=== PATIENT | female | born 1965 | race Caucasian/White ===

== ENCOUNTER 2017-12-23 15:31 | Emergency (ER) | payer MEDICAID ==
[2017-12-23] MEDS ORDERED: NORMAL SALINE 1000 ML 1,000 ML IV ONE (16:51)
[2017-12-23] MEDS ORDERED: MORPHINE SULFATE 10 MG/ML INJ IV ONE (16:51)
[2017-12-23] MEDS ORDERED: ONDANSETRON HCL INJ/PF 4 MG/2 ML SDV IV ONE (16:51)
--- NOTE | 2017-12-23 16:52 | ER Document Report ---
ED Medical Screen (RME) - General Chief Complaint: Abdominal Pain Stated Complaint: ABDOMINAL PAIN Time Seen by Provider: 12/23/17 16:50 Mode of Arrival: Ambulatory Information source: Patient Notes: This is a 52-year-old female who presents to the emergency room with left flank pain, chills, sweats for the past day. Patient denies dysuria. She denies any chest pain or shortness of breath. TRAVEL OUTSIDE OF THE [place] IN LAST 30 DAYS: No - Related Data Allergies/Adverse Reactions: Penicillins Allergy (Verified 07/29/13 20:52) Sulfa (Sulfonamide Antibiotics) Allergy (Verified 07/29/13 16:17) rash and vomiting Past Medical History Renal/ Medical History: Denies: Hx Peritoneal Dialysis Psychiatric Medical History: Reports: Hx Attention Deficit Hyperactivity Disorder, Hx Bipolar Disorder Past Surgical History: Reports: Hx Section - x2 - Immunizations Hx Diphtheria, Pertussis, Tetanus Vaccination: Yes Physical Exam - Vital signs Vitals: Temp Pulse Resp BP Pulse Ox 99.3 F 105 H 24 H 140/114 H 98 12/23/17 15:39 12/23/17 15:39 12/23/17 15:39 12/23/17 15:39 12/23/17 15:39 Course - Vital Signs Vital signs: Temp Pulse Resp BP Pulse Ox 99.3 F 105 H 24 H 140/114 H 98 12/23/17 15:39 12/23/17 15:39 12/23/17 15:39 12/23/17 15:39 12/23/17 15:39 Doctor's Discharge - Discharge Referrals: RENETTA AGOSTO NP-C [Primary Care Provider] - Follow up as needed
[2017-12-23 17:33] LABS: ABSOLUTE EOSINOPHILS # (AUTO) 0.1 10^3/uL (0.0-0.6); ABSOLUTE LYMPHOCYTES (AUTO) 0.8 10^3/uL (0.5-4.7); ABSOLUTE MONOCYTES (AUTO) 0.5 10^3/uL (0.1-1.4); BASOPHILS % (AUTO) 0.8 % (0-2); EOSINOPHILS % (AUTO) 1.2 % (0-6); HEMATOCRIT 44.1 % (36.0-47.0); HEMOGLOBIN 15.1 g/dL (12.0-15.5); LYMPHOCYTES % (AUTO) 14.1 % (13-45); MEAN CORPUSCULAR HEMOGLOBIN 31.5 pg (27.0-33.4); MEAN CORPUSCULAR HGB CONC 34.3 g/dL (32.0-36.0); MEAN CORPUSCULAR VOLUME 92 fl (80-97); MONOCYTES % (AUTO) 9.7 % (3-13); PLATELET COUNT 219 10^3/uL (150-450); RED BLOOD COUNT 4.79 10^6/uL (3.72-5.28); RED CELL DISTRIBUTION WIDTH 14.1 % (11.5-14.0); SEGMENTED NEUTROPHILS % (AUTO) 74.2 % (42-78); TOTAL CELLS COUNTED % (AUTO) 100 %; WHITE BLOOD COUNT 5.5 10^3/uL (4.0-10.5)
[2017-12-23 17:51] LABS: ALANINE AMINOTRANSFERASE 15 U/L (9-52); ALBUMIN 4.6 g/dL (3.5-5.0); ALKALINE PHOSPHATASE 98 U/L (38-126); ANION GAP 14 (5-19); ASPARTATE AMINO TRANSFERASE 19 U/L (14-36); BILIRUBIN,DIRECT 0.1 mg/dL (0.0-0.4); BILIRUBIN,TOTAL 0.5 mg/dL (0.2-1.3); BLOOD UREA NITROGEN 12 mg/dL (7-20); CARBON DIOXIDE 27 mmol/L (22-30); CHLORIDE 96 mmol/L (98-107); GLUCOSE 85 mg/dL (75-110); POTASSIUM 4.5 mmol/L (3.6-5.0); SODIUM 137.1 mmol/L (137-145); TOTAL PROTEIN 7.6 g/dL (6.3-8.2)
[2017-12-23 17:56] LABS: APPEARANCE,URINE SLIGHTLY-CLOUDY; BILIRUBIN,URINE NEGATIVE (NEGATIVE); COLOR,URINE YELLOW; GLUCOSE, URINE NEGATIVE (NEGATIVE); KETONES,URINE NEGATIVE (NEGATIVE); LEUKOCYTE ESTERASE,URINE MODERATE (NEGATIVE); NITRITE,URINE NEGATIVE (NEGATIVE); PROTEIN,URINE NEGATIVE (NEGATIVE); URINE SPECIFIC GRAVITY 1.021; UROBILINOGEN,URINE NEGATIVE mg/dL (<2.0)
[2017-12-23] MEDS ORDERED: KETOROLAC TROMETHAMINE 0.45% 4 DROP/0.4 ML DROPERETTE OS ONE (19:06)
[2017-12-23] MEDS ORDERED: KETOROLAC TROMETHAMINE INJ/PF 30 MG/1 ML SDV IV ONE (19:06)
[2017-12-23] MEDS ORDERED: MORPHINE SULFATE 10 MG/ML INJ IV PRN (19:06)
--- NOTE | 2017-12-23 19:08 | ER Document Report ---
ED General - General Chief Complaint: Abdominal Pain Stated Complaint: ABDOMINAL PAIN Time Seen by Provider: 12/23/17 16:50 Mode of Arrival: Ambulatory Notes: Patient is a 52-year-old female without chronic medical problems, no prior abdominal surgical history beyond a who presents with 24 hours of left upper, epigastric and left flank pain. Describes the pain as being a severe, stabbing, constant pain that sometimes doubles her over. She states that nothing seems to improve or worsen that pain. No history of similar symptoms in the past. She states that she has had associated nausea but no vomiting. No diarrhea. No fever or constitutional symptoms. She has not seen her primary care doctor regarding today's concerns. No chest pain or shortness of breath. TRAVEL OUTSIDE OF THE [place] IN LAST 30 DAYS: No - Related Data Allergies/Adverse Reactions: Penicillins Allergy (Verified 07/29/13 20:52) Sulfa (Sulfonamide Antibiotics) Allergy (Verified 07/29/13 16:17) rash and vomiting Past Medical History - General Information source: Patient - Social History Smoking Status: Current Every Day Smoker Frequency of alcohol use: None Drug Abuse: None Lives with: Family Family History: Reviewed & Not Pertinent Patient has suicidal ideation: No Patient has homicidal ideation: No Renal/ Medical History: Denies: Hx Peritoneal Dialysis Psychiatric Medical History: Reports: Hx Attention Deficit Hyperactivity Disorder, Hx Bipolar Disorder Past Surgical History: Reports: Hx Section - x2 - Immunizations Hx Diphtheria, Pertussis, Tetanus Vaccination: Yes Review of Systems - Review of Systems Notes: Constitutional: Negative for fever. HENT: Negative for sore throat. Eyes: Negative for visual changes. Cardiovascular: Negative for chest pain. Respiratory: Negative for shortness of breath. Gastrointestinal: Positive for abdominal pain Genitourinary: Negative for dysuria. Musculoskeletal: Negative for back pain. Skin: Negative for rash. Neurological: Negative for headaches, weakness or numbness. 10 point ROS negative except as marked above and in HPI. Physical Exam - Vital signs Vitals: Temp Pulse Resp BP Pulse Ox 99.3 F 105 H 24 H 140/114 H 98 12/23/17 15:39 12/23/17 15:39 12/23/17 15:39 12/23/17 15:39 12/23/17 15:39 Interpretation: Tachycardic Notes: PHYSICAL EXAMINATION: GENERAL: Appears mildly uncomfortable but in no acute distress HEAD: Atraumatic, normocephalic. EYES: Pupils equal round and reactive to light, extraocular movements intact, sclera anicteric, conjunctiva are normal. ENT: nares patent, oropharynx clear without exudates. Moderately dry mucous membranes. NECK: Normal range of motion, supple without lymphadenopathy LUNGS: Breath sounds clear to auscultation bilaterally and equal. No wheezes rales or rhonchi. HEART: Regular rate and rhythm without murmurs ABDOMEN: Soft, mild tenderness to the epigastrium and left upper quadrant. No other localized areas of tenderness. normoactive bowel sounds. No guarding, no rebound. No masses appreciated. EXTREMITIES: Normal range of motion, no pitting or edema. No cyanosis. NEUROLOGICAL: No focal neurological deficits. Moves all extremities spontaneously and on command. PSYCH: Normal mood, normal affect. SKIN: Warm, Dry, normal turgor, no rashes or lesions noted. Course - Re-evaluation Re-evalutation: 12/23/17 19:07 Patient presents with left flank and left upper abdominal pain that has been ongoing for the past 36 hours. Initial laboratories are unremarkable with exception of mild pyuria and hematuria. Physical examination notable only for left upper quadrant and left flank tenderness to palpation otherwise benign. Patient has no prior history of abdominal surgeries other than a . No tenderness to the right upper quadrant or right lower quadrant to suggest biliary pathology or acute appendicitis. She does have mild epigastric and left upper quadrant abdominal tenderness placing a gastritis or duodenitis on the differential. My concern is for possible acute nephrolithiasis of which the patient does not have a history. Given her age and the fact that she has no prior history of such will obtain a CT scan of the abdomen and pelvis to further clarify. 12/23/17 20:21 CT the abdomen pelvis unremarkable without any evidence of nephrolithiasis or aortic pathology. Patient is symptomatically much improved. The patient has been started on treatment for possible gastritis duodenitis picture given the absence of alternative pathology based on labs and imaging. Repeat abdominal exam at this time is completely unremarkable without any focal tenderness rebound or guarding. Patient has tolerated oral intake without difficulty. At this time will discharge with return precautions and follow-up recommendations. Verbal discharge instructions given a the bedside and opportunity for questions given. Medication warnings reviewed. Patient is in agreement with this plan and has verbalized understanding of return precautions and the need for primary care follow-up in the next 24-72 hours. - Vital Signs Vital signs: Temp Pulse Resp BP Pulse Ox 98.8 F 88 18 113/75 98 12/23/17 20:55 12/23/17 20:55 12/23/17 20:55 12/23/17 20:55 12/23/17 20:55 - Laboratory Result Diagrams: 12/23/17 17:15 12/23/17 17:15 Laboratory results interpreted by me: 12/23/17 12/23/17 12/23/17 17:15 17:15 17:15 RDW 14.1 H Chloride 96 L Urine Blood MODERATE H Ur Leukocyte Esterase MODERATE H - Diagnostic Test Radiology reviewed: Reports reviewed Discharge - Discharge Clinical Impression: Upper abdominal pain Nausea and vomiting Qualifiers: Vomiting type: vomiting of fecal matter Qualified Code(s): R11.13 - Vomiting of fecal matter Condition: Good Disposition: HOME, SELF-CARE Additional Instructions: Your symptoms appear to be most consistent with stomach or upper intestinal irritation. Please begin taking famotidine 40 mg in the morning and 40 mg at night. Please also take the Carafate as prescribed. You may take Zofran as needed for nausea or vomiting. You may also take medicine such as Pepto-Bismol or Tums to assist with your pain. Please return to emergency department immediately if you have worsening of your pain, shortness of breath, vomiting, become unable to exert yourself due to pain or difficulty breathing, you pass out, or have any pain that radiates into your arms, jaw, or back. Please also return if you have any additional symptoms that are concerning to you. As we have discussed, the most important thing is lifestyle changes. You need to avoid smoking, sodas, tea, coffee, alcohol, spicy foods, and acidic foods such as citrus fruits, tomato based products, berries, and most fruit juices. Prescriptions: Famotidine 40 mg PO BID #60 tablet Sucralfate [Carafate 1 gm Tablet] 1 gm PO ACHS #120 tablet Referrals: HETAL ALFONSO MD [ACTIVE STAFF] - Follow up in 3-5 days RENETTA AGOSTO NP-C [NURSE PRACTITIONER] - Follow up in 3-5 days
--- NOTE | 2017-12-23 20:04 | RADIOLOGY REPORT (SQ) ---
EXAM DESCRIPTION: CT ABD/PELVIS NO ORAL OR IV COMPLETED DATE/TIME: 12/23/2017 7:54 pm REASON FOR STUDY: left flank pain COMPARISON: 01/11/2013. TECHNIQUE: CT scan of the abdomen and pelvis performed without intravenous or oral contrast. Images reviewed with lung, soft tissue, and bone windows. Reconstructed coronal and sagittal MPR images revi ewed. All images stored on PACS. All CT scanners at this facility use dose modulation, iterative reconstruction, and/or weight based d osing when appropriate to reduce radiation dose to as low as reasonably achievable (ALARA). [facility]: Dose Right [facility]: CareDose [facility]: Dose Right [facility]: Teradose 4D [facility]: Spherical Systems RADIATION DOSE: mGy. LIMITATIONS: None. FINDINGS: LOWER CHEST: No significant findings. No nodules or infiltrates. NON-CONTRASTED LIVER, SPLEEN, ADRENALS: Evaluation limited by lack of IV contrast. No identified sign ificant masses. PANCREAS: No masses. No peripancreatic inflammatory changes. GALLBLADDER: No identified stones by CT criteria. No inflammatory changes to suggest cholecystitis. RIGHT KIDNEY AND URETER: No suspicious masses. Assessment limited by lack of IV contrast. No signif icant calcifications. No hydronephrosis or hydroureter. LEFT KIDNEY AND URETER: No suspicious masses. Assessment limited by lack of IV contrast. No signifi cant calcifications. No hydronephrosis or hydroureter. AORTA AND RETROPERITONEUM: No aneurysm. No retroperitoneal masses or adenopathy. BOWEL AND PERITONEAL CAVITY: No obvious masses or inflammatory changes. No free fluid. APPENDIX: Normal. PELVIS, BLADDER, AND ABDOMINAL WALL:IUD in the uterus. No abnormal masses. No free fluid. Bladder no rmal. BONES: No significant findings. OTHER: No other significant finding. IMPRESSION: NO SIGNIFICANT OR ACUTE PROCESS IN THE ABDOMEN OR PELVIS. COMMENT: Quality ID # [id number]: Final reports with documentation of one or more dose reduction techniques (e.g., Automated exposure control, adjustment of the mA and/or kV according to patient size, use of iterative reconstruction technique) TECHNICAL DOCUMENTATION: JOB ID: [id number] [employer]- All Rights Reserved Reading location - IP/workstation name: [email or web address] [id number]
[2017-12-23] MEDS ORDERED: MAG HYDROX/AL HYDROX/SIMETH SUSP 30 ML UDCUP PO ONE (20:16)
[2017-12-23] MEDS ORDERED: LIDOCAINE 2% VISCOUS SOLN 20 ML UDCUP PO ONE (20:16)
[2017-12-23] MEDS ORDERED: METOCLOPRAMIDE HCL ORAL SOLN 10 MG/10 ML UDCUP PO ONE (20:16)
[2017-12-23] MEDS ORDERED: FAMOTIDINE 20 MG TABLET PO ONE (20:16)
[2017-12-23 20:56] VITALS: BP 113/75
== END 2017-12-23 20:56 | disposition home or self-care (01) ==
LOC: ER 15:31
DX: R10.13 Epigastric pain (principal); R11.13 Vomiting of fecal matter; R00.0 Tachycardia, unspecified; F17.200 Nicotine dependence, unspecified, uncomplicated; Z88.0 Allergy status to penicillin; Z88.2 Allergy status to sulfonamides
CPT/HCPCS: 99284; 96361; 96374; 96375; 36415; 87086; 84702; 85025; 87088; 80053; 81001; 87186; 74176; J3490 ×2; J1885; J2270; J2405; J7030

== ENCOUNTER 2017-12-25 08:42 | Emergency (ER) | payer MEDICAID ==
[2017-12-25] MEDS ORDERED: KETOROLAC TROMETHAMINE INJ/PF 30 MG/1 ML SDV IV ONE (09:03)
[2017-12-25] MEDS ORDERED: NORMAL SALINE 1000 ML 1,000 ML IV ONE (09:04)
--- NOTE | 2017-12-25 09:04 | ER Document Report ---
ED GI/ <NBA BARROSO - Last Filed: 12/25/17 10:31> - General Mode of Arrival: Ambulatory Information source: Patient TRAVEL OUTSIDE OF THE [place] IN LAST 30 DAYS: No <ANA DAVILA - Last Filed: 12/25/17 10:54> - General Chief Complaint: Abdominal Pain Stated Complaint: ABDOMINAL PAIN Time Seen by Provider: 12/25/17 08:50 Notes: 52-year-old female who presents to the emergency department today with complaints of 4 days of left upper quadrant pain. Patient states she does not feel like the pain is in her back. Patient was seen 2 days ago and diagnosed with viral gastritis. Urine cultures performed at that time which grew out >100 ,000 gram-negative rods. Patient denies fevers but states she feels warm. ( ANA DAVILA) - Related Data Allergies/Adverse Reactions: Penicillins Allergy (Verified 07/29/13 20:52) Sulfa (Sulfonamide Antibiotics) Allergy (Verified 07/29/13 16:17) rash and vomiting Past Medical History - General Information source: Patient - Social History Smoking Status: Current Every Day Smoker Cigarette use (# per day): Yes Frequency of alcohol use: None Drug Abuse: None Occupation: [employer] with: Family Family History: Reviewed & Not Pertinent Psychiatric Medical History: Reports: Hx Attention Deficit Hyperactivity Disorder, Hx Bipolar Disorder Past Surgical History: Reports: Hx Section - x2 - Immunizations Hx Diphtheria, Pertussis, Tetanus Vaccination: Yes <ANA DAVILA - Last Filed: 12/25/17 10:54> Review of Systems - Review of Systems Constitutional: See HPI, Fever EENT: No symptoms reported Cardiovascular: No symptoms reported Respiratory: No symptoms reported Gastrointestinal: See HPI, Abdominal pain - LUQ Genitourinary: No symptoms reported Female Genitourinary: No symptoms reported Musculoskeletal: No symptoms reported Skin: No symptoms reported Hematologic/Lymphatic: No symptoms reported Neurological/Psychological: No symptoms reported -: Yes All other systems reviewed and negative <ANA DAVIAL - Last Filed: 12/25/17 10:54> Physical Exam <NBA BARROSO - Last Filed: 12/25/17 10:31> <ANA DAVILA - Last Filed: 12/25/17 10:54> - Vital signs Vitals: Temp Pulse Resp BP Pulse Ox 98.2 F 72 16 107/70 96 12/25/17 08:43 12/25/17 08:43 12/25/17 08:43 12/25/17 08:43 12/25/17 08:43 - Notes Notes: Physical Exam: General: Alert, appears well. HEENT: Normocephalic. Atraumatic. PERRL. Extraocular movements intact. Oropharynx clear. Neck: Supple. Non-tender. Respiratory: No respiratory distress. Clear and equal breath sounds bilaterally. Cardiovascular: Regular rate and rhythm. Abdominal: Minimal LUQ tenderness to palpation. No distension. Normal Bowel Sounds. Back: Left CVA tenderness to percussion. No deformity or step off. Extremities: Moves all four extremities. Upper extremities: Normal inspection. Normal ROM. Lower extremities: Normal inspection. No edema. Normal ROM. Neurological: Normal cognition. AAOx4. Normal speech. Psychological: Normal affect. Normal Mood. Skin: Hot to the touch. Dry. Normal color. (ANA DAVILA) Course - Laboratory Result Diagrams: 12/25/17 08:50 12/25/17 08:50 <NBA BARROSO - Last Filed: 12/25/17 10:31> - Laboratory Result Diagrams: 12/25/17 08:50 12/25/17 08:50 <ANA DAVILA - Last Filed: 12/25/17 10:54> - Vital Signs Vital signs: Temp Pulse Resp BP Pulse Ox 98.2 F 72 16 107/70 96 12/25/17 08:43 12/25/17 08:43 12/25/17 08:43 12/25/17 08:43 12/25/17 08:43 - Laboratory Laboratory results interpreted by me: 12/25/17 12/25/17 12/25/17 08:50 08:50 09:12 RDW 14.1 H Monocytes % 14.8 H Glucose 119 H Total Protein 6.0 L Albumin 3.2 L Urine Blood MODERATE H Urine Nitrite POSITIVE H Discharge <NBA BARROSO - Last Filed: 12/25/17 10:31> <ANA DAVILA - Last Filed: 12/25/17 10:54> - Discharge Clinical Impression: Pyelonephritis Urinary tract infection Qualifiers: Urinary tract infection type: acute pyelonephritis Qualified Code(s): N10 - Acute pyelonephritis Disposition: HOME, SELF-CARE Additional Instructions: Pyelonephritis: Your evaluation shows evidence of pyelonephritis. This is an infection in the kidney. Typical symptoms are fever, pain in the flank, pain on urination, and frequent urination. Many cases of pyelonephritis can be treated at home. Hospital care may be necessary for patients who are very ill, or elderly or . Pyelonephritis is treated with antibiotics. Be sure to take all the medication as prescribed. Drink plenty of liquids (about three quarts per day) . You may take acetaminophen for fever. You should feel significantly improved within two days. You should have a recheck of your urine in about one week to insure that the infection is gone. Return for a re-examination if your symptoms worsen in any way -- such as high fever, shaking chills, severe weakness or dizziness, severe pain, or inability to pass your urine. Take medications as prescribed. Drink plenty of fluids. Rest. Take ibuprofen 600 mg every 8 hours, or Aleve 2 tablets every 12 hours for pain and inflammation. Follow-up with your primary care provider in the next 2-3 days for recheck if not feeling better. RETURN TO THE EMERGENCY ROOM IF ANY NEW OR WORSENING SYMPTOMS. Prescriptions: Ciprofloxacin HCl [Cipro 500 mg Tablet] 500 mg PO BID #14 tablet Forms: Return to Work Scribe Attestation: 12/25/17 10:24 I personally performed the services described in the documentation, reviewed and edited the documentation which was dictated to the scribe in my presence, and it accurately records my words and actions. (NBA BARROSO) Scribe Documentation - Scribe Written by Elliott:: Elliott Castle, 12/25/2017 1054 acting as scribe for :: Masoud <ANA DAVILA - Last Filed: 12/25/17 10:54>
[2017-12-25 09:28] LABS: ABSOLUTE EOSINOPHILS # (AUTO) 0.1 10^3/uL (0.0-0.6); ABSOLUTE MONOCYTES (AUTO) 0.7 10^3/uL (0.1-1.4); ABSOLUTE NEUT (AUTO) 3.2 10^3/uL (1.7-8.2); BASOPHILS % (AUTO) 0.7 % (0-2); EOSINOPHILS % (AUTO) 1.3 % (0-6); HEMATOCRIT 37.5 % (36.0-47.0); HEMOGLOBIN 13.1 g/dL (12.0-15.5); MEAN CORPUSCULAR VOLUME 91 fl (80-97); MONOCYTES % (AUTO) 14.8 % (3-13); PLATELET COUNT 182 10^3/uL (150-450); RED BLOOD COUNT 4.11 10^6/uL (3.72-5.28); RED CELL DISTRIBUTION WIDTH 14.1 % (11.5-14.0); SEGMENTED NEUTROPHILS % (AUTO) 64.2 % (42-78); TOTAL CELLS COUNTED % (AUTO) 100 %
[2017-12-25 09:33] LABS: APPEARANCE,URINE SLIGHTLY-CLOUDY; BILIRUBIN,URINE NEGATIVE (NEGATIVE); COLOR,URINE YELLOW; GLUCOSE, URINE NEGATIVE (NEGATIVE); KETONES,URINE NEGATIVE (NEGATIVE); LEUKOCYTE ESTERASE,URINE NEGATIVE (NEGATIVE); NITRITE,URINE POSITIVE (NEGATIVE); PROTEIN,URINE NEGATIVE (NEGATIVE); URINE SPECIFIC GRAVITY 1.021; UROBILINOGEN,URINE NEGATIVE mg/dL (<2.0)
[2017-12-25 09:42] LABS: ALANINE AMINOTRANSFERASE 15 U/L (9-52); ALBUMIN 3.2 g/dL (3.5-5.0); ALKALINE PHOSPHATASE 63 U/L (38-126); ANION GAP 11 (5-19); ASPARTATE AMINO TRANSFERASE 16 U/L (14-36); BILIRUBIN,DIRECT 0.1 mg/dL (0.0-0.4); BILIRUBIN,TOTAL 0.3 mg/dL (0.2-1.3); BLOOD UREA NITROGEN 11 mg/dL (7-20); CALCIUM 8.4 mg/dL (8.4-10.2); CARBON DIOXIDE 23 mmol/L (22-30); CHLORIDE 104 mmol/L (98-107); GLUCOSE 119 mg/dL (75-110); POTASSIUM 4.1 mmol/L (3.6-5.0); SODIUM 137.9 mmol/L (137-145)
[2017-12-25] MEDS ORDERED: CIPROFLOXACIN HCL 500 MG TABLET PO ONE (10:41)
[2017-12-25] MEDS ORDERED: HYDROCODONE/ACETAMINOPHEN 5-325 MG (6 TAB/ER DISP) PO PRN (10:49)
[2017-12-25 11:02] VITALS: BP 80/65
== END 2017-12-25 11:02 | disposition home or self-care (01) ==
LOC: ER 08:42
DX: N10 Acute pyelonephritis (principal); R10.9 Unspecified abdominal pain; R10.12 Left upper quadrant pain; F17.210 Nicotine dependence, cigarettes, uncomplicated
CPT/HCPCS: 99284; 96361; 51701; 96374; 36415; 87040; 87086; 85025; 87088; 80053; 81001; 87186; J3490; J1885; J7030

== ENCOUNTER 2018-03-12 10:38 | Emergency (ER) | payer MEDICAID ==
[2018-03-12] MEDS ORDERED: IBUPROFEN 800 MG TABLET PO ONE (11:20)
--- NOTE | 2018-03-12 11:25 | ER Document Report ---
ED Medical Screen (RME) - General Chief Complaint: Abdominal Pain Stated Complaint: ABDOMINAL PAIN Time Seen by Provider: 03/12/18 11:17 Mode of Arrival: Wheelchair Information source: Patient Notes: Patient presents emergency department with complaints of left lower quadrant abdominal pain that started this morning. Patient denies other symptoms such as pain with void fever vomiting diarrhea. Denies trauma. Patient denies past medical history of this left lower quadrant abdominal pain. Patient does admit to having IUD for many many years over 10 years. She reports she has the Adela maggie. Patient reports she was at another doctor's office when she started having pain. She has not taken anything for pain. LLQ ttp I have greeted and performed a rapid initial assessment of this patient. A comprehensive ED assessment and evaluation of the patient, analysis of test results and completion of the medical decision making process will be conducted by additional ED providers. TRAVEL OUTSIDE OF THE [place] IN LAST 30 DAYS: No - Related Data Allergies/Adverse Reactions: Penicillins Allergy (Verified 03/12/18 10:39) Sulfa (Sulfonamide Antibiotics) Allergy (Verified 03/12/18 10:39) rash and vomiting Past Medical History Renal/ Medical History: Denies: Hx Peritoneal Dialysis Psychiatric Medical History: Reports: Hx Attention Deficit Hyperactivity Disorder, Hx Bipolar Disorder Past Surgical History: Reports: Hx Section - x2 - Immunizations Hx Diphtheria, Pertussis, Tetanus Vaccination: Yes Physical Exam - Vital signs Vitals: Temp Pulse Resp BP Pulse Ox 97.7 F 103 H 18 114/84 100 03/12/18 10:48 03/12/18 10:48 03/12/18 10:48 03/12/18 10:48 03/12/18 10:48 Course - Vital Signs Vital signs: Temp Pulse Resp BP Pulse Ox 97.7 F 103 H 18 114/84 100 03/12/18 10:48 03/12/18 10:48 03/12/18 10:48 03/12/18 10:48 03/12/18 10:48
[2018-03-12 12:01] LABS: APPEARANCE,URINE SLIGHTLY-CLOUDY; BILIRUBIN,URINE NEGATIVE (NEGATIVE); COLOR,URINE YELLOW; GLUCOSE, URINE NEGATIVE (NEGATIVE); KETONES,URINE NEGATIVE (NEGATIVE); LEUKOCYTE ESTERASE,URINE MODERATE (NEGATIVE); NITRITE,URINE POSITIVE (NEGATIVE); PROTEIN,URINE NEGATIVE (NEGATIVE); UROBILINOGEN,URINE NEGATIVE mg/dL (<2.0)
[2018-03-12 12:02] LABS: ABSOLUTE BASOPHILS # (AUTO) 0.1 10^3/uL (0.0-0.2); ABSOLUTE EOSINOPHILS # (AUTO) 0.2 10^3/uL (0.0-0.6); ABSOLUTE LYMPHOCYTES (AUTO) 1.2 10^3/uL (0.5-4.7); ABSOLUTE MONOCYTES (AUTO) 0.6 10^3/uL (0.1-1.4); ABSOLUTE NEUT (AUTO) 3.9 10^3/uL (1.7-8.2); BASOPHILS % (AUTO) 0.9 % (0-2); HEMATOCRIT 42.1 % (36.0-47.0); HEMOGLOBIN 14.2 g/dL (12.0-15.5); LYMPHOCYTES % (AUTO) 20.6 % (13-45); MEAN CORPUSCULAR HEMOGLOBIN 30.8 pg (27.0-33.4); MEAN CORPUSCULAR HGB CONC 33.6 g/dL (32.0-36.0); MEAN CORPUSCULAR VOLUME 92 fl (80-97); MONOCYTES % (AUTO) 9.3 % (3-13); PLATELET COUNT 196 10^3/uL (150-450); RED CELL DISTRIBUTION WIDTH 14.8 % (11.5-14.0); SEGMENTED NEUTROPHILS % (AUTO) 66.2 % (42-78); TOTAL CELLS COUNTED % (AUTO) 100 %; WHITE BLOOD COUNT 5.9 10^3/uL (4.0-10.5)
[2018-03-12 12:10] LABS: ALANINE AMINOTRANSFERASE 25 U/L (9-52); ALBUMIN 4.5 g/dL (3.5-5.0); ALKALINE PHOSPHATASE 90 U/L (38-126); ANION GAP 6 (5-19); ASPARTATE AMINO TRANSFERASE 21 U/L (14-36); BILIRUBIN,DIRECT 0.1 mg/dL (0.0-0.4); BILIRUBIN,TOTAL 0.2 mg/dL (0.2-1.3); BLOOD UREA NITROGEN 33 mg/dL (7-20); CALCIUM 9.6 mg/dL (8.4-10.2); CARBON DIOXIDE 28 mmol/L (22-30); CHLORIDE 104 mmol/L (98-107); GLUCOSE 86 mg/dL (75-110); POTASSIUM 4.7 mmol/L (3.6-5.0); SODIUM 138.4 mmol/L (137-145); TOTAL PROTEIN 6.8 g/dL (6.3-8.2)
--- NOTE | 2018-03-12 12:12 | ER Document Report ---
ED General - General Chief Complaint: Abdominal Pain Stated Complaint: ABDOMINAL PAIN Time Seen by Provider: 03/12/18 11:17 Mode of Arrival: Wheelchair TRAVEL OUTSIDE OF THE [place] IN LAST 30 DAYS: No - HPI Notes: Patient is a 52-year-old female with no significant past medical history who presents the emergency department complaining of acute left lower pelvic pain that began this morning. Patient states that the pain is sharp and does not radiate. Patient states that she does have ParaGard in place that has been there for over 10 years. Patient states that she has not been sexually active in "a long time" and has no concern of STD or STI. She has not had any vaginal discharge, odor, or bleeding. Patient states that she has not had a menstrual cycle since ParaGard was placed. Patient states that she is otherwise been eating and drinking without any difficulties today. She is urinating normally and having normal bowel movements. No surgical history to her abdomen. No other concerns or complaints. Denies any headache, fever, neck pain, URI, sore throat, chest pain, palpitations, syncope, cough, shortness of breath, wheeze, dyspnea, nausea/vomiting/diarrhea, urinary retention, dysuria, hematuria, back pain, or rash. - Related Data Allergies/Adverse Reactions: Penicillins Allergy (Verified 03/12/18 10:39) Sulfa (Sulfonamide Antibiotics) Allergy (Verified 03/12/18 10:39) rash and vomiting Past Medical History - General Information source: Patient - Social History Smoking Status: Current Every Day Smoker Frequency of alcohol use: None Drug Abuse: None Family History: Reviewed & Not Pertinent Patient has suicidal ideation: No Patient has homicidal ideation: No Renal/ Medical History: Denies: Hx Peritoneal Dialysis Psychiatric Medical History: Reports: Hx Attention Deficit Hyperactivity Disorder, Hx Bipolar Disorder Past Surgical History: Reports: Hx Section - x2 - Immunizations Hx Diphtheria, Pertussis, Tetanus Vaccination: Yes Review of Systems - Review of Systems -: Yes All other systems reviewed and negative Physical Exam - Vital signs Vitals: Temp Pulse Resp BP Pulse Ox 97.7 F 103 H 18 114/84 100 03/12/18 10:48 03/12/18 10:48 03/12/18 10:48 03/12/18 10:48 03/12/18 10:48 - Notes Notes: PHYSICAL EXAMINATION: GENERAL: Well-appearing, well-nourished and in no acute distress. A&Ox4. answers questions appropriately. HEAD: Atraumatic, normocephalic. EYES: Pupils equal round and reactive to light, extraocular movements intact, sclera anicteric, conjunctiva are normal. ENT: Nares patent and without discharge. oropharynx clear without exudates. No tonsilar hypertrophy or erythema. Moist mucous membranes. NECK: Normal range of motion, supple without lymphadenopathy LUNGS: Breath sounds clear to auscultation bilaterally and equal. No wheezes rales or rhonchi. HEART: Regular rate and rhythm without murmurs, rubs, gallops. ABDOMEN: Soft, nondistended abdomen. No guarding, no rebound. Normal bowel sounds present. No CVA tenderness bilaterally. + tenderness to the left lower pelvic area and near the bladder. No obvious hernia. Musculoskeletal: FROM to passive/active. Strength 5+/5. Extremities: No cyanosis, clubbing, or edema b/l. Peripheral pulses 2+. Capillary refill less than 3 seconds. NEUROLOGICAL: Normal speech, normal gait. PSYCH: Normal mood, normal affect. SKIN: Warm, Dry, normal turgor, no rashes or lesions noted. Course - Re-evaluation Re-evalutation: 03/12/18 14:[address] Self. US performed was a TVUS not abdominal per the tech. They will be updating their note. No ovaries visualized d/t bowel gas. Pt continues to have left lower pelvic pain. We will obtain a CT with IV contrast to further evaluate. We may consider consult with OB/repeat US if needed. Pt continues to be NPO. 03/12/18 15:48 Patient is requesting to sign out AMA. Patient states that she does not want to wait for the CT scan and does not want any further imaging. Patient states that she just wants to go home at this point. She does have a family doctor who she states that she will be calling in the morning. I did review the risk and benefit of signing out AMA including worsening pain and worse case scenario . Patient has verbalized understanding of this and would still like to sign out AMA. Strict return precautions reviewed with the patient is in agreement with. She is otherwise an afebrile, well-hydrated, 52-year-old female who has left lower pelvic pain unspecified as well as a UTI. Vitals are curr ently acceptable. Transvaginal ultrasound was inconclusive. Lab work was otherwise unremarkable. Rx for keflex. Patient to recheck with her PCM in the next couple days. She is to call [employer] tomorrow morning as well. Return to the ED with any other worsening/concerning symptoms as reviewed. Patient is in agreement. - Vital Signs Vital signs: Temp Pulse Resp BP Pulse Ox 98.3 F 75 18 102/67 97 03/12/18 13:01 03/12/18 13:01 03/12/18 15:01 03/12/18 15:01 03/12/18 15:01 - Laboratory Result Diagrams: 03/12/18 11:32 03/12/18 11:32 Laboratory results interpreted by me: 03/12/18 03/12/18 03/12/18 11:32 11:32 11:35 RDW 14.8 H BUN 33 H Urine Blood SMALL H Urine Nitrite POSITIVE H Ur Leukocyte Esterase MODERATE H Discharge - Discharge Clinical Impression: Acute UTI, Pelvic pain Condition: Stable Disposition: AGAINST MEDICAL ADVICE Instructions: Abdominal Pain ([facility]), Cephalexin ([facility]) Additional Instructions: As reviewed, you are signing out AMA and you need to be diligent with follow-up as we are unsure of the etiology of your pelvic pain. Your pain could be something benign, but worst case could be something serious that could result in you being hospitalized or result in . Push fluids (i.e. water, cranberry juice) Proper hygenic technique Keep the skin clean Tylenol/ibuprofen as needed Take medications as directed Follow-up tomorrow with your PCM or as soon as you are able Call [employer] tomorrow morning to schedule a consult. Return to the ED with any worsening symptoms and/or development of fever, headache, chest pain, palpitations, syncope, shortness of breath, trouble breathing, abdominal pain, n/v/d, blood in stool/urine, loss of control of bowel/bladder, urinary retention, or other worsening symptoms that are concerni ng to you. Prescriptions: Cephalexin Monohydrate [Keflex 500 mg Capsule] 500 mg PO TID #21 capsule Referrals: [facility] [Provider Group] - Follow up as needed
--- NOTE | 2018-03-12 13:32 | RADIOLOGY REPORT (SQ) ---
EXAM DESCRIPTION: U/S NON-OB PELVIS W/O DOP COMPLETED DATE/TIME: 03/12/2018 1:01 pm REASON FOR STUDY: LLQ pain, hx IUD +++10 years, COMPARISON: None. TECHNIQUE: Dynamic and static grayscale images acquired of the pelvis via transabdominal approach an d recorded on PACS. Additional selected color Doppler and spectral images recorded. LIMITATIONS: None. FINDINGS: UTERUS: Contour normal. No mass. ENDOMETRIAL STRIPE: IUD within the endometrial cavity. CERVIX: Cervix measures 2.3 cm. Close. No nabothian cysts. RIGHT OVARY AND DOPPLER: Not visualized due to overlying bowel gas. LEFT OVARY AND DOPPLER: Not visualized due to overlying bowel gas. FREE FLUID: None noted. OTHER: No other significant finding. MEASUREMENTS: UTERUS: 5.4 x 3.9 x 2.7 cm ENDOMETRIAL STRIPE: IUD RIGHT OVARY: Not visualized LEFT OVARY: Not visualized IMPRESSION: 1. Neither ovary is visualized due to overlying bowel gas. 2. IUD within the endometrial cavity. TECHNICAL DOCUMENTATION: JOB ID: [id number]- All Rights Reserved Rev-07/06 Reading location - IP/workstation name: [email or web address]
[2018-03-12] MEDS ORDERED: MORPHINE SULFATE 10 MG/ML INJ IV ONE (13:59)
[2018-03-12] MEDS ORDERED: NORMAL SALINE 1000 ML 1,000 ML IV ONE (14:18)
[2018-03-12 15:54] VITALS: BP 102/67
== END 2018-03-12 16:05 | disposition left against medical advice (07) ==
LOC: ER 10:38
DX: N39.0 Urinary tract infection, site not specified (principal); R10.2 Pelvic and perineal pain; Z88.2 Allergy status to sulfonamides; Z88.0 Allergy status to penicillin; F17.200 Nicotine dependence, unspecified, uncomplicated
CPT/HCPCS: 99284; 96374; 36415; 84703; 85025; 80053; 81001; 76856; J3490; J2270; J7030

== ENCOUNTER 2019-02-08 02:08 | Emergency (ER) | payer MEDICAID ==
[2019-02-08] MEDS ORDERED: OXYCODONE-ACETAMINOPHEN 5-325 MG TABLET PO ONE (04:06)
[2019-02-08] MEDS ORDERED: PROMETHAZINE HCL 25 MG TABLET PO ONE (04:06)
--- NOTE | 2019-02-08 04:08 | ER Document Report ---
ED GI/ - General Chief Complaint: Problem with Urinary Catheter Stated Complaint: POSS CATHETAR PROBLEM Time Seen by Provider: 02/08/19 03:56 Notes: Patient is a 53-year-old female that comes to the emergency department for chief complaint of pain around the area of her catheter patient states it is itching, uncomfortable, and it is driving her crazy. She has a bladder and the urethra secondary to a robotic hysterectomy by Dr. Rivas on December 02 which was complicated by a laceration to her bladder, she states that on December 10 she had her Farley catheter pulled too early and she had urine run into her abdomen/pelvis, she states that she is following with Dr. Aguayo urology in [place] and she is supposed to have her catheter removed on Sunday and she is hoping this pain can be done today because it is very uncomfortable. She denies vomiting, developing abdominal pain, fever/chills, or any other complaints at this time. TRAVEL OUTSIDE OF THE [place] IN LAST 30 DAYS: No - Related Data Allergies/Adverse Reactions: Sulfa (Sulfonamide Antibiotics) Allergy (Verified 03/12/18 10:39) rash and vomiting Home Medications: gabapentin. iron supplement. adderrall. invega Past Medical History - General Information source: Patient - Social History Smoking Status: Current Every Day Smoker Frequency of alcohol use: None Drug Abuse: None Lives with: Family Family History: Reviewed & Not Pertinent Patient has suicidal ideation: No Patient has homicidal ideation: No - Past Medical History Cardiac Medical History: Denies: Hx Coronary Artery Disease, Hx Heart Attack, Hx Hypertension Pulmonary Medical History: Denies: Hx Asthma, Hx Bronchitis, Hx COPD, Hx Pneumonia Neurological Medical History: Denies: Hx Cerebrovascular Accident, Hx Seizures Renal/ Medical History: Denies: Hx Peritoneal Dialysis Musculoskeletal Medical History: Denies Hx Arthritis Psychiatric Medical History: Reports: Hx Attention Deficit Hyperactivity Disorder, Hx Bipolar Disorder Past Surgical History: Reports: Hx Section - x2 - Immunizations Hx Diphtheria, Pertussis, Tetanus Vaccination: Yes Review of Systems - Review of Systems Constitutional: No symptoms reported EENT: No symptoms reported Cardiovascular: No symptoms reported Respiratory: No symptoms reported Gastrointestinal: No symptoms reported Genitourinary: See HPI Female Genitourinary: No symptoms reported Musculoskeletal: No symptoms reported Skin: No symptoms reported Hematologic/Lymphatic: No symptoms reported Neurological/Psychological: No symptoms reported Physical Exam - Vital signs Vitals: Temp Pulse Resp BP Pulse Ox 97.3 F 103 H 16 119/62 96 02/08/19 02:12 02/08/19 02:12 02/08/19 02:12 02/08/19 02:12 02/08/19 02:12 - Notes Notes: GENERAL: Alert, interacts well. No acute distress. HEAD: Normocephalic, atraumatic. EYES: Pupils equal, round, and reactive to light. Extraocular movements intact. ENT: Oral mucosa moist, tongue midline. Oropharynx unremarkable. Airway patent. NECK: Full range of motion. Supple. Trachea midline. LUNGS: Clear to auscultation bilaterally, no wheezes, rales, or rhonchi. No respiratory distress. HEART: Regular rate and rhythm. No murmur ABDOMEN: Minimal generalized tenderness of the abdomen. There are scars that have healed over the lower abdomen which are recent but there are no signs of infection or dehiscence. GENITOURINARY: Farley catheter in place without concerning findings otherwise EXTREMITIES: Moves all 4 extremities spontaneously. No edema, normal radial and dorsalis pedis pulses bilaterally. No cyanosis. BACK: no cervical, thoracic, lumbar midline tenderness. No saddle anesthesia, normal distal neurovascular exam. Moves all extremities in full range of motion. NEUROLOGICAL: Alert and oriented x3. Normal speech. Cranial nerves II through XII grossly intact. PSYCH: Normal affect, normal mood. SKIN: Warm, dry, normal turgor. No rashes or lesions noted. Course - Re-evaluation Re-evalutation: Patient has a soft abdomen, she is well-appearing, she has no complications with the Farley that are obvious. Vital signs unremarkable. Urine nonspecific given her Farley catheter status, culture was placed. Patient is requesting to remove the Farley catheter because of irritation and discomfort. I called and spoke with Dr. Sal Perez electrification adviser for Dr. Aguayo who is patient's urologist. He states that on Sunday patient is supposed to have a CT cystogram with 200 to 300 cc in the bladder to make sure there was no leak from the former wound before patient can have the Farley removed. He states that we can perform the cystogram CT and is negative call him back and he can recommend removal, otherwise he does not recommend removal until this is performed on Sunday. I called and spoke with radiology, unfortunately we are unable to perform this test. I discussed with patient, she states she understands, she requests some symptom management until Sunday. I called [facility] back and spoke and updated them on the details, patient will follow-up on Sunday for her tests and hopefully Farley removal. Discussed with patient at this could remain in further as well. Discussed return precautions. Patient states understanding and agreement. - Vital Signs Vital signs: Temp Pulse Resp BP Pulse Ox 98.0 F 87 17 103/56 L 97 02/08/19 06:04 02/08/19 06:04 02/08/19 06:04 02/08/19 06:04 02/08/19 06:04 - Laboratory Laboratory results interpreted by me: 02/08/19 04:07 Urine Protein 100 H Urine Ketones TRACE H Urine Blood LARGE H Ur Leukocyte Esterase LARGE H Discharge - Discharge Clinical Impression: Problem with Farley catheter Qualifiers: Encounter type: initial encounter Qualified Code(s): T83.9XXA - Unspecified complication of genitourinary prosthetic device, implant and graft, initial encounter Condition: Stable Disposition: HOME, SELF-CARE Additional Instructions: I spoke with Dr. Perez, on-call for Dr. Aguayo today. Unfortunately because we cannot perform the CT cystogram here I am unable to clear you to have the Farley catheter removed. Please follow-up on Sunday to have this test performed and hopefully this can be removed (if this is negative). Return for any concerning symptoms including developing pain in your abdomen, vomiting, fever, or any other concerning symptoms. Prescriptions: Oxycodone HCl/Acetaminophen [Percocet 5-325 mg Tablet] 1 - 2 tab PO Q4H PRN #8 tablet PRN Reason: Promethazine HCl [Phenergan 25 mg Tablet] 25 mg PO Q6H PRN #15 tablet PRN Reason:
[2019-02-08 04:37] LABS: APPEARANCE,URINE TURBID; BILIRUBIN,URINE NEGATIVE (NEGATIVE); COLOR,URINE AMBER; GLUCOSE, URINE NEGATIVE (NEGATIVE); KETONES,URINE TRACE mg/dL (NEGATIVE); LEUKOCYTE ESTERASE,URINE LARGE (NEGATIVE); NITRITE,URINE NEGATIVE (NEGATIVE); PROTEIN,URINE 100 mg/dL (NEGATIVE); URINE SPECIFIC GRAVITY 1.023; UROBILINOGEN,URINE NEGATIVE mg/dL (<2.0)
[2019-02-08] MEDS ORDERED: ONDANSETRON ODT 4 MG TAB (6 TAB/ER DISP) PO PRN (05:23)
[2019-02-08] MEDS ORDERED: HYDROCODONE/ACETAMINOPHEN 5-325 MG (6 TAB/ER DISP) PO PRN (05:23)
[2019-02-08 06:10] VITALS: BP 103/56
== END 2019-02-08 06:10 | disposition home or self-care (01) ==
LOC: ER 02:08
DX: T83.9XXA Unspecified complication of genitourinary prosthetic device, implant and graft, initial encounter (principal); L29.9 Pruritus, unspecified; Z88.2 Allergy status to sulfonamides; F17.200 Nicotine dependence, unspecified, uncomplicated; Z90.710 Acquired absence of both cervix and uterus
CPT/HCPCS: 99283; 87086; 87088; 81001; J3490; 87186